=== PATIENT | female | born 1990 | race Two or more races ===

== ENCOUNTER → 2021-04-22 08:41 | Outpatient (CLI) | payer SELFPAY ==
--- NOTE | ~2021-04-22 | US_ITS ---
EXAMINATION: US renal BI EXAM DATE: 04/22/2021 10:20 INDICATION: Abdominal bloating . TECHNIQUE: Multiple grayscale and Doppler images of the kidneys were obtained (by a technologist who performed the scan) and subsequently reviewed. Comparison is made to prior examination from 04/22/2021 . FINDINGS: Right kidney: There is normal contour and echogenicity. It measures 10.0 x 4.2 x 4.7 centimeters. T here are no focal renal lesions identified. Mild hydronephrosis, was not present on abdominal ultras ound earlier same date, probably transient given that right ureteral jet was confirmed. Left kidney: There is normal contour and echogenicity. It measures 10.8 x 5.5 x 5.2 centimeters. Th ere are no focal renal lesions identified. There is no hydronephrosis. Bladder moderately distended but otherwise unremarkable. Bilateral ureteral jets were confirmed. IMPRESSION: Mild right hydronephrosis, probably transient. Ureter confirmed nonobstructive. Reviewed, dictated and finalized at location A. IMPRESSION: Mild right hydronephrosis, probably transient. Ureter confirmed non obstructive.
--- NOTE | ~2021-04-22 | US_ITS ---
EXAMINATION: US abdomen complete EXAM DATE: 04/22/2021 09:30 INDICATION: Abdominal bloating. TECHNIQUE: Multiple grayscale and Doppler images of the complete abdomen were obtained (by a technolo gist who performed the scan) and subsequently reviewed. Comparison is made to prior examination from 04/22/2021. FINDINGS: The abdominal aorta is normal in caliber. Visualized portion IVC is patent. The pancreatic head a nd body are normal in appearance. The pancreatic tail is not visualized. The liver has normal echogenicity and contour. There are no focal liver lesions identified. There is no evidence of intrahepatic biliary duct dilation. Portal venous flow was seen in the hepatopedal , normal direction and has normal Doppler waveform. Common bile duct measures 4 mm, which is normal. The gallbladder wall is normal in thickness, with ex pected amount of distention. No sonographic evidence of pericholecystic fluid. There is no cholelit hiases. Technologist performing exam reports patient did not demonstrate sonographic Lewis's sign. Please note that this sign is less reliable in patients who have received pain medication. Right kidney: There is normal contour and echogenicity. It measures 10.0 x 3.4 x 5.1 centimeters. There are no focal renal lesions identified. There is no hydronephrosis. Left kidney: There is normal contour and echogenicity. It measures 10.9 x 5.5 x 4.2 centimeters. T here are no focal renal lesions identified. There is no hydronephrosis. The spleen measures 8 point centimeters and is morphologically normal. IMPRESSION: 1. Unremarkable complete abdominal ultrasound exam. Reviewed, dictated and finalized at location A.
== END ==
PROVIDERS: Visit Provider Nurse Practitioner Obstetrics & Gynecology
DX: R14.0 Abdominal distension (gaseous) (principal)
CPT/HCPCS: 76700; 76775

== ENCOUNTER 2022-02-02 11:07 | Outpatient (CLI) | payer MEDICAID, SELFPAY ==
--- NOTE | ~2022-02-02 | XR_ITS ---
EXAMINATION: XR hysterosalpingogram DATE: 02/02/2022 11:53 INDICATION: Hydrosalpinx. TECHNIQUE: Fluoroscopy was performed by the radiologist during contrast infusion into the endometrial cavity of the uterus by the primary physician. Fluoroscopy exposure time was 0.9 minutes. The total number of images was 7. FINDINGS: The intrauterine cavity is normal in morphology. Right fallopian tube is normal in caliber with normal free intraperitoneal spillage of contrast. Left fallopian tube is abnormally dilated with out free intraperitoneal spillage of contrast. IMPRESSION: 1. Left-sided hydrosalpinx. Reviewed, dictated and finalized at location A. IMPRESSION: 1. Left-sided hydrosalpinx.
--- NOTE | 2022-02-02 11:39 | P.OP_ITS ---
Procedure Note - Detailed Date of Procedure 02/02/22 Pre-op Diagnosis left hydrosalpinx Post-op Diagnosis Same Procedure Performed hysterosalpingogram Surgeon Arpita Ferraro MD Anesthesia None Findings normal uterine cavity. right tubal patency. left tube nonpatent with mild dilation of tube. Description of Procedure The patient was placed in dorsal supine position on the radiology table. A speculum was placed and the cervix prepped with betadine. The HSG catheter was easily placed through her cervix and the balloon inflated. After the radiologist performed the box sealing machine feeder film, the radioopaque dye was instilled through the catheter, showing tubal patency on right and tubal occlusion on left. Estimated Blood Loss 2 Drains No Pathology None sent Complications No immediate complications Condition Stable Disposition Other (home)
== END 2022-02-02 11:08 | disposition home or self-care (01) ==
PROVIDERS: Visit Provider Obstetrics & Gynecology
DX: N70.11 Chronic salpingitis (principal)
CPT/HCPCS: 58340; 74740; Q9966

== ENCOUNTER 2022-05-29 13:07 | Outpatient (CLI) | payer MEDICAID, SELFPAY | END 2022-05-29 13:08 | disposition home or self-care (01) | PROVIDERS: Visit Provider Obstetrics & Gynecology | DX: O20.0 Threatened abortion (principal) | CPT/HCPCS: 36415; 84702; 86850; 86900; 86901 ==

== ENCOUNTER 2023-01-07 05:10 | Inpatient (IN) | payer OTHER, SELFPAY ==
[2023-01-07] VITALS (169 sets, daily range): BP systolic 109–130; BP diastolic 68–97; PULSE 72–123; TEMP 36.8–36.9; O2SAT 91–100; BMI 25.7
--- NOTE | ~2023-01-07 | US_ITS ---
EXAMINATION: US OB follow up DATE: 01/07/2023 07:43 INDICATION: Vaginal bleeding. Evaluate growth. TECHNIQUE: Real-time transabdominal obstetric ultrasound. FINDINGS: No prior studies for comparison. There is a single living fetus in vertex presentation. The placenta is fundal without placenta previ a. cardiac activity and movement is noted with a heart rate of beats per minute. The a mniotic fluid volume is low. GIOVANNI measures 6.2 cm (normal range for gestational age is 7.5-24.4 cm). The following biometric data were obtained: BPD: 94mm corresponds to gestational age 38 weeks 2 days. Head circumference: 330mm corresponds to gestational age 37 weeks 4 days. Abdominal circumference: 323mm corresponds to gestational age 36 weeks 1 days. Femur length: 69mm corresponds to gestational age 35 weeks 3 days. Estimated weight: 2917grams +/- 437grams, 28.1%.] IMPRESSION: 1. Single living intrauterine in vertex presentation with an estimated gestational age of 36 weeks 6 days by current ultrasound. 2. Oligohydramnios.. 3: The placenta is grossly normal, without suggestion of placenta abruption. However, ultrasound is not diagnostic of abruption since acute hemorrhage can be isoechoic to be placenta. Recommend clini renetta correlation. Reviewed, dictated and finalized at location L. IMPRESSION: 1. Single living intrauterine in vertex presentation with an estimat ed gestational age of 36 weeks 6 days by current ultrasound. 2. Oligohydramnios.. 3: The placenta is grossly normal, without suggestion of placenta abruption. However, ultrasound is not diagnostic of abruption since acute hemorrhage can b e isoechoic to be placenta. Recommend clinical correlation.
[2023-01-07 06:13] LABS: Basophils Absolute Auto 0.1 K/mm3 (0.0-0.1); Basophils Percent Auto 0.4 % (0.2-1.2); Eosinophils Absolute Auto 0.1 K/mm3 (0-0.3); Eosinophils Percent Auto 0.4 % (0-4.4); Hematocrit 37.2 % (37.0-47.0); Hemoglobin 11.7 g/dL (12.0-15.0); Immature Granulocyte Absolute 0.31 K/mm3 (0.00-0.031); Immature Granulocyte Percent A 2.2 % (0-0.5); Lymphocytes Absolute Auto 3.59 K/mm3 (0.9-3.2); Lymphocytes Percent Auto 25.4 % (18.3-44.2); Mean Corpuscular HGB Conc 31.5 g/dl (32-36); Mean Corpuscular Volume 79.5 fl (80-100); Mean Platelet Volume 12.2 fl (7.4-10.4); Monocytes Percent Auto 7.1 % (2.6-8.5); Neutrophils Absolute Auto 9.1 K/mm3 (1.3-6.7); Neutrophils Percent Auto 64.5 % (45.5-73.1); Platelet Count Result 184 k/mm3 (150-375); Red Blood Count 4.68 M/mm3 (4.2-5.4); Red Cell Distribution Width 16.5 % (11.5-14.5); White Blood Count 14.2 K/mm3 (4.5-10.0)
[2023-01-07 06:20] LABS: Alanine Aminotransferase 19 U/L (6-35); Albumin Level 3.4 g/dL (3.5-5.1); Alkaline Phosphatase 223 U/L (38-126); Anion Gap 11 mmol/L (8-16); Aspartate Amino Transferase 22 U/L (14-36); Bilirubin,Total 0.4 mg/dL (0.2-1.3); Blood Urea Nitrogen 8 mg/dL (7-17); Calcium 8.8 mg/dL (8.4-10.2); Carbon Dioxide 15 mmol/L (22-30); Chloride 109 mmol/L (98-107); Estimated Glomerular Filt Rate > 60; Glucose 108 mg/dL (65-110); Potassium 3.7 mmol/L (3.4-5.0); Sodium 135 mmol/L (137-145)
[2023-01-07 06:23] LABS: INR 0.9; Prothrombin Time 12.3 Seconds (11.1-14.7)
[2023-01-07 06:24] LABS: Fibrinogen 425 mg/dl (215-510); Partial Thromboplastin Time 26.5 SECONDS (22.3-36.8)
[2023-01-07] MEDS: LACTATED RINGERS 1,000 ML 125 ML IV CONT ×3 (06:58→22:55)
[2023-01-07 07:14] LABS: D Dimer 1.46 ug/mL (<0.48)
--- NOTE | 2023-01-07 07:24 | WPDANESEPP ---
Anes - Eval Pre Procedure Procedure: Labor epidural Date/Time: 01/07/23 07:24 Surgeon: ishaan Preop Diagnosis: pain during labor Pre Op Diagnosis: Vaginal Bleeding Patient Data Age: 32 Gender: F Height: Weight: Last Vital Signs Pulse 96 01/07/23 07:15 BP 122/89 01/07/23 07:15 Pulse Ox 100 01/07/23 07:20 Allergies Allergy/AdvReac Type Severity Reaction Status Date / Time No Known Allergies Allergy Verified 12/26/22 12:42 Home Medications Medication Instructions Recorded Confirmed Type vit no.95-ferrous 1 tablet PO DAILY 01/07/23 01/07/23 History fumarate 28 mg-folic acid 800 mcg tablet () Laboratory Tests 01/07/23 06:00 WBC 14.2 H K/mm3 (4.5-10.0) RBC 4.68 M/mm3 (4.2-5.4) Hgb 11.7 L g/dL (12.0-15.0) Hct 37.2 % (37.0-47.0) MCV 79.5 L fl (80-100) MCH 25.0 L pg (26-34) MCHC 31.5 L g/dl (32-36) RDW 16.5 H % (11.5-14.5) Plt Count 184 k/mm3 (150-375) MPV 12.2 H fl (7.4-10.4) Immature Gran % (Auto) 2.2 H % (0-0.5) Neut % (Auto) 64.5 % (45.5-73.1) Lymph % (Auto) 25.4 % (18.3-44.2) Steele % (Auto) 7.1 % (2.6-8.5) Eos % (Auto) 0.4 % (0-4.4) Baso % (Auto) 0.4 % (0.2-1.2) Lymph # (Auto) 3.59 H K/mm3 (0.9-3.2) Steele # (Auto) 1.0 H K/mm3 (0.1-0.6) Eos # (Auto) 0.1 K/mm3 (0-0.3) Baso # (Auto) 0.1 K/mm3 (0.0-0.1) Abs Immat Gran (auto) 0.31 H K/mm3 (0.00-0.031) Absolute Neuts (auto) 9.1 H K/mm3 (1.3-6.7) Absolute Nucleated RBC 0.0 K/mm3 (0.0-0.012) Nucleated RBC % 0.0 % (0.0-0.2) PT 12.3 Seconds (11.1-14.7) INR 0.9 APTT 26.5 SECONDS (22.3-36.8) Fibrinogen 425 mg/dl (215-510) D-Dimer 1.46 H ug/mL (<0.48) Sodium 135 L mmol/L (137-145) Potassium 3.7 mmol/L (3.4-5.0) Chloride 109 H mmol/L (98-107) Carbon Dioxide 15 L mmol/L (22-30) Anion Gap 11 mmol/L (8-16) BUN 8 mg/dL (7-17) Creatinine 0.50 L mg/dL (0.7-1.0) Estim Creat Clear Calc Not Reportable Estimated GFR > 60 (59 - ) Glucose 108 mg/dL (65-110) Calcium 8.8 mg/dL (8.4-10.2) Total Bilirubin 0.4 mg/dL (0.2-1.3) AST 22 U/L (14-36) ALT 19 U/L (6-35) Alkaline Phosphatase 223 H U/L (38-126) Total Protein 7.0 g/dL (6.3-8.2) Albumin 3.4 L g/dL (3.5-5.1) RPR Pending Blood Type B Positive Antibody Screen Negative Patient hx anesthesia problems: none Family hx anesthesia problems: none Results Review: All pre-operative results and documents have been reviewed as part of the pre-operative evaluation. [facility] Family History Family History (Updated 12/26/22 @ 12:43 by Sloane Hood RN) Other No pertinent family history Social History Social History Smoking status: Never smoker Second hand tobacco smoke exposure: No Substance use: never Lack of Transportation: No Lack of Food: Never True Current Housing: I Have Housing Concerned About Future Housing: No Difficulty Paying Gas/Electric Bills: No Difficulty Paying for Meds: No Currently Unemployed: No Education: Bachelor's Degree Difficulty w/ Childcare or Family Care: No Spiritual care concerns: No Exam Day of Procedure 01/07/23 07:24
--- NOTE | 2023-01-07 07:36 | PM.IMHP ---
H&P: HPI History of Present Illness Date/Time: 01/07/23 07:36 Chief Complaint: at 37.4 weeks gestation who presented by ambulance with vaginal bleeding. Pt says she woke up to urinate but when she stood up bright red blood ran down her leg. Pt c/o off and on discomfort, like menstrual cramps, pt denies any other complaints. has been complicated by renal pyelactasis. history of prediabetes, passed glucose testing. FHR category 1, contractions irregular Review of Systems Review of Systems: All systems reviewed & are unremarkable except as noted in HPI and below [facility] Family History Family History (Updated 12/26/22 @ 12:43 by Sloane Hood RN) Other No pertinent family history Social History Social History Smoking status: Never smoker Second hand tobacco smoke exposure: No Substance use: never Lack of Transportation: No Lack of Food: Never True Current Housing: I Have Housing Concerned About Future Housing: No Difficulty Paying Gas/Electric Bills: No Difficulty Paying for Meds: No Currently Unemployed: No Education: Bachelor's Degree Difficulty w/ Childcare or Family Care: No Spiritual care concerns: No Meds Home Medications and Allergies Home Medications Medication Instructions Recorded Confirmed Type vit no.95-ferrous 1 tablet PO DAILY 01/07/23 01/07/23 History fumarate 28 mg-folic acid 800 mcg tablet () Allergies Allergy/AdvReac Type Severity Reaction Status Date / Time No Known Allergies Allergy Verified 12/26/22 12:42 Vital Signs Vital Signs - 24 hr 01/07/23 05:17 01/07/23 05:20 01/07/23 05:25 Pulse Rate Blood Pressure Pulse Oximetry 100 94 100 01/07/23 05:30 01/07/23 05:35 01/07/23 05:40 Pulse Rate Blood Pressure Pulse Oximetry 100 100 100 01/07/23 05:45 01/07/23 05:50 01/07/23 05:55 Pulse Rate Blood Pressure Pulse Oximetry 100 100 100 01/07/23 06:00 01/07/23 06:05 01/07/23 06:07 Pulse Rate 90 Blood Pressure 129/87 Pulse Oximetry 100 100 01/07/23 06:10 01/07/23 06:15 01/07/23 06:20 Pulse Rate 103 H Blood Pressure 117/95 H Pulse Oximetry 100 100 100 01/07/23 06:25 01/07/23 06:30 01/07/23 06:35 Pulse Rate 123 H Blood Pressure 123/97 H Pulse Oximetry 100 100 100 01/07/23 06:40 01/07/23 06:45 01/07/23 06:50 Pulse Rate 115 H Blood Pressure 124/95 H Pulse Oximetry 100 100 100 01/07/23 06:55 01/07/23 07:00 01/07/23 07:05 Pulse Rate 99 Blood Pressure 119/87 Pulse Oximetry 100 100 100 01/07/23 07:10 01/07/23 07:15 01/07/23 07:20 Pulse Rate 96 Blood Pressure 122/89 Pulse Oximetry 100 100 100 01/07/23 07:25 01/07/23 07:30 01/07/23 07:35 Pulse Rate 99 Blood Pressure 129/81 Pulse Oximetry 100 100 99 Exam Const: General: cooperative Chest: Chest palpation & inspection: normal inspection of the chest Resp: Effort & Inspection: normal respiratory effort GI: Inspection: normal to inspection Other: gravid, soft in between contractions : Other: speculum exam , cervix visualized, pooling of 5-10cc of bright red blood cervix one/posterior/firm/40% Skin: General skin exam: normal color Extrem: Right lower extremity: normal to inspection Left lower extremity: normal to inspection Psych: Appearance: grossly normal H&P: Results Labs Labs: Short CBC 01/07/23 Range/Units 06:00 WBC 14.2 H (4.5-10.0) K/mm3 Hgb 11.7 L (12.0-15.0) g/dL Hct 37.2 (37.0-47.0) % Plt Count 184 (150-375) k/mm3 BMP 01/07/23 06:00 Sodium 135 L Potassium 3.7 Chloride 109 H Carbon Dioxide 15 L BUN 8 Creatinine 0.50 L Glucose 108 Calcium 8.8 Liver Function 01/07/23 Range/Units 06:00 Total Bilirubin 0.4 (0.2-1.3) mg/dL AST 22 (14-36) U/L ALT 19 (6-35) U/L Alkaline Phosphatase 223 H (38-126) U/L Albumin 3.4 L (3.5-5.1) g/dL Assessment a
[2023-01-07 10:30] LABS: Rapid Plasma Reagin Non-Reactive (NonReactive)
[2023-01-08] VITALS (107 sets, daily range): BP systolic 83–139; BP diastolic 44–95; PULSE 25–141; RESP 18; TEMP 36.6–37.3; O2SAT 83–100
--- NOTE | 2023-01-08 07:02 | PM.OBPNLAB ---
Pain Control Date/time seen: 01/08/23 07:02 Pain control: tolerating well Comments: Feels some intermittent back pain. Has high pain tolerance per . Pelvic Exam Dilation (cm): 5 Effacement (%): 60 station: -2 Amniotic membrane status: Ruptured Comments: arom clear Status status: Category l Comments: overnight reviewed, no lates noted. Assessment and Plan Comments: FHT category 1 uncertain source of bleeding, stopped now. discussed possible abruption, velamentous insertion, or just prolific bloody show. AROM clear pitocin if needed
[2023-01-08] MEDS: OXYTOCIN 30 UNITS/NS 500 ML 30 UNITS/500 ML BAG 999 UNITS IV CONT (09:50)
--- NOTE | 2023-01-08 19:07 | P.PCNOB_ITS ---
OB - Delivery Note Procedure Delivery date: 01/08/23 Procedure: Induction method: AROM and Per Pitocin Protocol Delivery monitor: External FHT and Internal Uterine Route of delivery: Laceration Description: Perineal - 2nd Degree Delivery repair: vicryl Specimen: Yes (placenta) Quantitative Blood Loss (ml): 350 Anesthesia type: Epidural Disposition: Floor Narrative: With adequate expulsive efforts by the mother, the baby's head was delivered OA. The baby's anterior shoulder was delivered under the pubic symphysis without difficulty. The posterior shoulder and the rest of the baby delivered without difficulty. The was placed on the mothers chest and suctioned and stimulated. The cord was clamped and cut after 30 seconds. Mother and baby both stable. [place] Baby Date of : 01/08/23 Time of : 16:28 Weeks of gestation at delivery: 37 gender: Male presentation: vertex Placenta delivery description: Spontaneous Cord Vessel Description: 3 Vessels and Delayed Cord Clamping score one minute: 8 score five minutes: 9
[2023-01-08] MEDS: OXYTOCIN 30 UNITS/NS 500 ML 30 UNITS/500 ML BAG 125 UNITS IV CONT (19:10)
[2023-01-09 03:45] VITALS: BP 110/68; PULSE 91; RESP 18; TEMP 36.8; O2SAT 100
[2023-01-09] MEDS: IBUPROFEN 600 MG TABLET PO (04:26)
[2023-01-09 05:10] LABS: Hematocrit 33.5 % (37.0-47.0); Hemoglobin 10.6 g/dL (12.0-15.0)
--- NOTE | 2023-01-09 06:34 | PM.OBPNVD ---
OB - PN: Subj Subjective Date/time seen: 01/09/23 06:34 Patient comments: no complaints, pain well controlled, incisional pain, tolerating diet and flatus present OB - PN: Obj Data Labs 01/09/23 04:25 01/07/23 06:00 Labs: Laboratory Results - last 24 hr 01/09/23 04:25 Hgb 10.6 L Hct 33.5 L OB - PN A/P Plan day: 1 Plan: routine care Comments: No problems, routine care Time Spent With Patient Time: Total time spent is greater than 50% in coordination of care (as documented) at patient's floor/unit and/or counseling patient: Exam Const: General: comfortable, no acute distress and alert Resp: Effort & Inspection: normal respiratory effort Auscultation: no crackles, no rales and no rhonchi Cardio: Rate: regular rate Heart sounds: no click, no murmurs and no rubs GI: Inspection: non-distended GI Palp: No Tenderness to palpation present (GI) Auscultation: normal bowel sounds Other: Incision - CDI Extrem: General: normal to inspection, no pedal edema and no calf tenderness
[2023-01-09 10:23] VITALS: BP 97/62; PULSE 74; RESP 16; TEMP 36.3; O2SAT 100
[2023-01-09] MEDS: MULTIVIT/MIN/PREN/FOL AC/IRON TABLET 1 TAB PO (10:23)
[2023-01-09] MEDS: POLYSACCHARIDE IRON COMPLEX 150 MG CAPSULE PO (10:23)
--- NOTE | 2023-01-09 18:27 | WPDANLDNPN2 ---
Anes-Prog Note L&D-Neuraxial Date/Time: 01/09/23 18:27 Patient feedback: Patient satisfied with post-operative pain management.
--- NOTE | 2023-01-09 18:27 | WPDANLDPN2 ---
Anes-Prog Note L&D Date/Time: 01/09/23 18:27 Neuro status: Neuro function grossly intact. Cardiovascular status: normal Respiratory status: normal Airway patency: baseline Mental status: baseline Post-Op hydration status: normal Vital Signs: Last Vital Signs Temp 36.3 C L 01/09/23 10:23 Pulse 74 01/09/23 10:23 Resp 16 01/09/23 10:23 BP 97/62 L 01/09/23 10:23 Pulse Ox 100 01/09/23 10:23 O2 Del Method Room Air 01/09/23 10:23 Pain score (VAS): 0 Post-procedural complaints: none Patient feedback: Patient satisfied with anesthetic care.
[2023-01-09 19:30] VITALS: BP 116/79; PULSE 78; RESP 18; TEMP 36.5
[2023-01-09 19:37] VITALS: BP 117/65; PULSE 87; RESP 18; TEMP 36.7; O2SAT 100
[2023-01-10] MEDS: MULTIVIT/MIN/PREN/FOL AC/IRON TABLET 1 TAB PO (09:33)
[2023-01-10 09:35] VITALS: BP 125/74; PULSE 76; RESP 18; TEMP 36.5; O2SAT 100
[2023-01-10] MEDS: ACETAMINOPHEN 325 MG TABLET 650 MG PO (09:35)
--- NOTE | 2023-01-10 10:05 | P.PNOB_ITS ---
OB - PN: Subj Subjective Date/time seen: 01/10/23 10:05 pt doing well, working on pumping today baby in NICU at [facility] OB - PN: Obj Data Labs 01/09/23 04:25 01/07/23 06:00 OB - PN A/P Plan day: 2 Plan: routine care and discharge home Time Spent With Patient Time: Total time spent is greater than 50% in coordination of care (as documented) at patient's floor/unit and/or counseling patient: Review of Systems Review of Systems: All systems reviewed & are unremarkable except as noted in HPI and below Exam Const: General: cooperative, healthy appearing and comfortable Chest: Chest palpation & inspection: normal inspection of the chest Resp: Effort & Inspection: normal respiratory effort GI: Inspection: normal to inspection Skin: General skin exam: normal color Neuro: General: patient oriented x3 Extrem: General: normal to inspection Psych: Appearance: grossly normal
--- NOTE | 2023-01-10 10:08 | PM.OBDSVD ---
DS: Admitting Diagnosis Discharge Date 01/10/23 Admitting Diagnosis IOL, vaginal bleeding DS: Discharge Diagnosis Discharge Diagnosis (1) Vaginal delivery: Code(s): O80 - Encounter for full-term uncomplicated delivery Status: Acute OB - DS: Summary OB Procedures : None OB Procedures Intrapartum: Spontaneous Vag Delivery OB Procedures: : None Time Spent with Patient Time attestation: Total time spent providing and/or coordinating discharge services: DS: Data Data Completed and Pending Pending studies at discharge: Pending at discharge 01/08/23 18:35 Surgical [PTH] Routine Discharge Plan Discharge Attending physician on discharge: Renetta Garcia Discharging Clinician: Asmita Blue Patient Disposition: Home, Self-Care Activity: pelvic rest Diet: regular Patient Instructions: Antibiotic Form Stand Alone Forms: General Discharge Information Follow-up/Referrals: Arpita Ferraro MD [Physician] - 4 Weeks Discharge Medications: New ibuprofen 600 mg Tablet 600 mg PO Q6H PRN (Reason: Cramping) Qty: 30 0RF Continued PNV cmb#95-ferrous fumarate-FA [] 28 mg iron- 800 mcg Tablet 1 tablet PO DAILY Date of admission: 01/07/23 05:46 Primary Care Provider: PHYSICIAN,VICE PRESIDENT CORPORATE COMMUNICATIONS Admitting Provider: Arpita Ferraro Attending physician on admission: Arpita Ferraro Condition: Stable
[2023-01-12 11:01] VITALS: BP 119/79; PULSE 87; RESP 16; TEMP 37.1; O2SAT 100
== END 2023-01-10 13:25 | disposition home or self-care (01) | DRG 560 ==
LOC: ANHLDR 22:53 → ANHOB2 01-08 22:40
PROVIDERS: Advanced Practice Midwife; Admitting Provider Obstetrics & Gynecology; Visit Provider Obstetrics & Gynecology
DX: O67.8 Other intrapartum hemorrhage (principal); O70.1 Second degree perineal laceration during delivery; Z3A.37 37 weeks gestation of pregnancy; Z37.0 Single live birth
CPT/HCPCS: 36415; 76816; 80053; 85014; 85018; 85025; 85380; 85384; 85610; 85730; 86592; 86850; 86900; 86901; A9270; J2590; J7120